=== PATIENT | male | born 1950 | race Caucasian/White ===

== ENCOUNTER 2018-01-04 11:16 | Outpatient (CLI) | payer MEDICARE | END 2018-01-04 11:17 | disposition home or self-care (01) | LOC: DI 11:16 | PROVIDERS: ATTEND Internal Medicine | DX: R00.0 Tachycardia, unspecified (principal); I51.7 Cardiomegaly | CPT/HCPCS: 93306 ==

== ENCOUNTER 2018-05-11 09:18 | Outpatient (CLI) | payer MEDICARE | END 2018-05-11 09:19 | disposition home or self-care (01) | LOC: RT 09:18 | PROVIDERS: ATTEND Internal Medicine | DX: R00.0 Tachycardia, unspecified (principal); R06.02 Shortness of breath; R05 Cough | CPT/HCPCS: 94010; 94729 ==

== ENCOUNTER 2019-05-30 07:44 | Outpatient (CLI) | payer MEDICARE ==
--- NOTE | 2019-05-30 20:35 | Ultrasound Report ---
Reason: EX SMOKER Procedure Date: 05/30/2019 Accession Number: [id number] / [id number] Procedure: US - Aorta Screening CPT Code: Final Report FULL RESULT: EXAM: AORTIC DOPPLER ULTRASOUND EXAM DATE: 05/30/2019 08:23 AM. CLINICAL HISTORY: Ex smoker. COMPARISON: None. TECHNIQUE: Real-time sonographic imaging of retroperitoneal vascular structures, including color-flow, Doppler flow and spectral analysis was performed by the assessment technician. Multiple desk representative static images were saved for review. FINDINGS: Aorta: The abdominal aorta was adequately visualized. No evidence for abdominal aortic aneurysm. Aorta: Proximal: Sagittal AP 2.6 x 2.4 cm. Mid: Transverse 2.1 x 2.5 cm. Distal: Transverse 1.9 x 1.6 cm. Caliber: WNL: Yes. Plaque visualized: Yes, aortic bifurcation. Iliacs: Right Iliac: Transverse 1.2 x 1.2 cm. Left Iliac: Transverse 1.4 x 0.9 cm. Iliac Vessels: The visualized proximal common iliac arteries are normal in caliber. Other: None. IMPRESSION: Normal. No abdominal aortic aneurysm. [facility]
== END 2019-05-30 07:45 | disposition home or self-care (01) ==
LOC: DI 07:44
DX: Z87.891 Personal history of nicotine dependence (principal)
CPT/HCPCS: 76706

== ENCOUNTER 2023-10-08 08:00 | Outpatient (CLI) | payer MEDICARE, OTHER ==
--- NOTE | 2023-10-08 18:05 | XRAY Report ---
PROCEDURE: Pelvis 1-2V INDICATIONS: PAIN IN UNSPECIFIED HIP TECHNIQUE: 1 view(s) of the pelvis acquired. COMPARISON: None. FINDINGS: Bones: No fractures or dislocations. Mild to moderate bilateral hip joint osteoarthritis worse on th e right side. No evidence of avascular necrosis. Degenerative disc disease in visualized lower lumbar spine is seen. No suspicious bony lesions. Soft tissues: Visualized bowel gas pattern is normal. No suspicious soft tissue calcifications. IMPRESSION: No acute pelvic or hip fracture. Right worse than left bilateral hip joint osteoarthritis. No evidenc e of avascular necrosis. Degenerative disc disease in lower lumbar spine. Reviewed by: Tyler Egan MD on 10/08/2023 6:04 PM PDT Approved by: Tyler Egan MD on 10/08/2023 6:04 PM PDT Station ID: [id number]
== END 2023-10-08 23:59 | disposition home or self-care (01) ==
LOC: DI.S 08:00
PROVIDERS: ATTEND Nurse Practitioner
DX: M16.0 Bilateral primary osteoarthritis of hip (principal); M51.36 Other intervertebral disc degeneration, lumbar region